=== PATIENT | male | born 1965 | race Caucasian/White ===

== ENCOUNTER → 2017-01-01 | Outpatient (CLI) | payer BC ==
--- NOTE | 2017-01-01 13:56 | DIAGNOSTIC IMAGING REPORT ---
(TESTICULAR) SCROTUM-CONT CLINICAL HISTORY: 51 years-old Male presenting with SCROTAL PAIN, SWELLING, WARMTH. TECHNIQUE: Real-time grayscale and color and spectral Doppler ultrasound imaging of the scrotum was performed. COMPARISON: None. FINDINGS: Right testis: 3 mm bilobed intratesticular or tunica albuginea cyst. Otherwise normal echogenicity and echotexture. Testis measures 5.0 x 3.5 x 2.3 cm. Normal color Doppler flow and arterial and venous waveforms in the testicular parenchyma. Epididymal head normal. No hydrocele. No varicocele. Left testis: 3 mm intratesticular cyst. Otherwise normal echogenicity and echotexture. Testis measures 5.1 x 3.3 x 2.4 cm. Normal color Doppler flow and arterial and venous waveforms in the testicular parenchyma. Epididymal head normal. No hydrocele. Small hydrocele. Symmetric perfusion of the testes. IMPRESSION: No evidence of testicular torsion. No sonographic evidence of epididymitis-orchitis. Small left hydrocele. Electronically signed by: Mario Montague M.D. 01/01/2017 1:54 PM Dictated Date/Time: 01/01/2017 1:50 PM
== END | disposition home or self-care (01) ==
LOC: C.ULTRBC 13:20
PROVIDERS: ATTEND Nurse Practitioner Family
DX: N50.82 Scrotal pain (principal)